=== PATIENT | female | born 1965 | race African-American/Black ===

== ENCOUNTER 2019-10-04 18:51 | Emergency (ER) | payer OTHER ==
[2019-10-04 18:58] VITALS: BP 138/87
[2019-10-04] MEDS ORDERED: HYDROCODONE/ACETAMINOPHEN 5-325 MG TABLET PO ONE (19:28)
[2019-10-04] MEDS ORDERED: NEOMY/BACITRAC ZN/POLY OINT 15 GM TP ONE (19:28)
[2019-10-04] MEDS ORDERED: DIPH/PERTUSS(ACELL)/TETANUS VAC/PF 0.5 ML SYR (>=10YO) IM ONE (19:28)
--- NOTE | 2019-10-04 19:39 | ER Document Report ---
Entered by JOS GROVES SCRIBE 10/04/191924 Acting as scribe for:TIMA CHRISTIANSON DO ED General - General Chief Complaint: Burn Stated Complaint: BOILING WATER BURN/UPPER LEG Time Seen by Provider: 10/04/19 19:15 Primary Care Provider: MADISON CLARKE FNP [NO LOCAL MD] - Follow up as needed Mode of Arrival: Ambulatory Information source: Patient Notes: This 54 year old female patient presents to the ED today with complaints of multiple best that occurred just prior to arrival. Patient states that she was cooking lasagna on the stove and stirring the pasta when she accidentally knocked over the pot of boiling water onto the lower half of her body. She reports 2-3/10 pain to the top of pubic area, left side of groin, left upper thigh, and left thigh. She denies taking any pain medications prior to arrival. She is unsure of when she had her last tetanus booster. She states that the incident was accidental and not intentional. - Related Data Allergies/Adverse Reactions: amoxicillin [Amoxicillin] Allergy (Verified 01/17/12 22:52) Sulfa (Sulfonamide Antibiotics) Allergy (Verified 01/17/12 22:52) Past Medical History - Social History Smoking Status: Never Smoker Cigarette use (# per day): No Chew tobacco use (# tins/day): No Smoking Education Provided: No Frequency of alcohol use: Occasional Drug Abuse: None Family History: Reviewed & Not Pertinent Patient has suicidal ideation: No Patient has homicidal ideation: No Pulmonary Medical History: Reports: Hx Asthma Surgical Hx: Negative - Immunizations Hx Diphtheria, Pertussis, Tetanus Vaccination: - unk Review of Systems - Review of Systems Constitutional: No symptoms reported EENT: No symptoms reported Cardiovascular: No symptoms reported Respiratory: No symptoms reported Gastrointestinal: No symptoms reported Genitourinary: No symptoms reported Female Genitourinary: No symptoms reported Musculoskeletal: See HPI, Muscle pain Skin: See HPI, Other - Best Hematologic/Lymphatic: No symptoms reported Neurological/Psychological: No symptoms reported -: Yes All other systems reviewed and negative Physical Exam - Vital signs Vitals: Temp Pulse Resp BP Pulse Ox 98.2 F 81 16 138/87 H 100 10/04/19 18:52 10/04/19 18:52 10/04/19 18:52 10/04/19 18:52 10/04/19 18:52 - General General appearance: Alert - HEENT Head: Normocephalic, Atraumatic Eyes: Normal Pupils: PERRL - Respiratory Respiratory status: No respiratory distress Chest status: Nontender Breath sounds: Normal Chest palpation: Normal - Cardiovascular Rhythm: Regular Heart sounds: Normal auscultation Murmur: No Friction rub: No Gallop: None auscultated - Abdominal Inspection: Obese Distension: No distension Bowel sounds: Normal Tenderness: Nontender - Abdomen soft Organomegaly: No organomegaly - Back Back: Normal, Nontender - Extremities General upper extremity: Normal inspection General lower extremity: Normal inspection - Neurological Neuro grossly intact: Yes Cognition: Normal [place] Coma Scale Eye Opening: Spontaneous [place] Coma Scale Verbal: Oriented [place] Coma Scale Motor: Obeys Commands [place] Coma Scale Total: 15 - Psychological Associated symptoms: Normal affect, Normal mood - Skin Notes: Second degree best to top of pubic region on the mons, left side of groin in the intertriginous area, left upper thigh, and left knee. Total body surface area is less than 5%. Course - Re-evaluation Re-evalutation: 10/04/19 19:45 MDM 54 year old with accidental thermal burn to mons, left labia and left thigh. No other injuries. Tetanus is updated. Pain is addressed. - Vital Signs Vital signs: Temp Pulse Resp BP Pulse Ox 98.2 F 81 16 138/87 H 100 10/04/19 18:52 10/04/19 18:52 10/04/19 18:52 10/04/19 18:52 10/04/19 18:52 Discharge - Discharge Clinical Impression: Burn (any degree) involving less than 10% of body surface Hypertension Qualifiers: Hypertension type: unspecified Qualified Code(s): I10 - Essential (primary) hypertension Condition: Good Disposition: HOME, SELF-CARE Instructions: Best ([facility]), Oral Narcotic Medication ([facility]), Tetanus Immunization Given ([facility]) Additional Instructions: See your doctor or the urgent care as discussed Thursday 10/05. Return here for any problems or concerns including, but limited to drainage, redness or discharge from the burn. Forms: Return to Work Referrals: MADISON CLARKE FNP [NO LOCAL MD] - Follow up as needed I personally performed the services described in the documentation, reviewed and edited the documentation which was dictated to the scribe in my presence, and it accurately records my words and actions.
[2019-10-04] MEDS ORDERED: HYDROCODONE/ACETAMINOPHEN 5-325 MG (6 TAB/ER DISP) PO PRN (19:53)
== END 2019-10-04 21:03 | disposition home or self-care (01) ==
LOC: ER 18:51
DX: T21.02XA Burn of unspecified degree of abdominal wall, initial encounter (principal); T24.012A Burn of unspecified degree of left thigh, initial encounter; T31.0 Burns involving less than 10% of body surface; X12.XXXA Contact with other hot fluids, initial encounter; Y92.9 Unspecified place or not applicable; Z88.1 Allergy status to other antibiotic agents; Z88.2 Allergy status to sulfonamides; J45.909 Unspecified asthma, uncomplicated; E66.9 Obesity, unspecified
CPT/HCPCS: 99283; 90471; 90715; J3490